=== PATIENT | male | born 1965 | race Caucasian/White ===

== ENCOUNTER 2018-08-05 16:29 | Emergency (ER) | payer OTHER ==
--- NOTE | 2018-08-05 18:05 | CRLCR ---
Dropped something on foot. Three views of the right foot. FINDINGS: Degenerative change of the 1st MTP joint. Normal alignment. Soft tissue swelling over the medial foot. No acute fractures seen. Calcaneal spurs. IMPRESSION: 1. No acute fracture seen. Dictated by Keyla Wright MD @ Aug 05 2018 6:01PM Signed by Dr. Keyla Wright @ Aug 05 2018 6:03PM
--- NOTE | 2018-08-05 18:09 | EDM.PDOC ---
ED HPI GENERAL MEDICAL PROBLEM - General Chief Complaint: Lower Extremity Injury/Pain Stated Complaint: HURT RI FOOT Time Seen by Provider: 08/05/18 17:08 Source of Information: Reports: Patient History Limitations: Reports: No Limitations - History of Present Illness INITIAL COMMENTS - FREE TEXT/NARRATIVE: This gentleman dropped about an 80 pound weight on his right foot about a week ago. Apparently it landed just above the steel toe. He says the foot is swollen and hurts a lot and he can barely bear weight on it. He drives a forklift. He doesn't think he'll be able to work for a couple of days Right Foot Pain Score (Numeric/FACES): 3 - Related Data Allergies Allergy/AdvReac Type Severity Reaction Status Date / Time No Known Allergies Allergy Verified 08/05/18 17:08 Home Meds: Home Meds NK [No Known Home Meds] 08/05/18 [History] Past Medical History Cardiovascular History: Reports: Hypertension Musculoskeletal History: Reports: Other (See Below) Other Musculoskeletal History: shoulder, knee, and back issues from - Infectious Disease History Infectious Disease History: Reports: Chicken Pox Social & Family History - Tobacco Use Smoking Status *Q: Current Every Day Smoker Years of Tobacco use: 30 Packs/Tins Daily: 1 - Caffeine Use Caffeine Use: Reports: Soda - Recreational Drug Use Recreational Drug Use: No Review of Systems - Review of Systems Review Of Systems: ROS reveals no pertinent complaints other than HPI. ED EXAM, GENERAL - Physical Exam Exam: See Below Exam Limited By: No Limitations General Appearance: Alert, WD/WN, Mild Distress Extremities: Other (Patient has trouble pulling off his boot there is a little bit of swelling to the distal part of the foot mostly on the dorsum. When I forcibly flex the toes that seems to cause him a lot of pain in the upper part of the foot extending into the calf. Does not look like a compartment syndrome however. Does not look like any kind of infection.) Skin Exam: Warm, Dry Course - Vital Signs Last Recorded V/S: Last Vital Signs Temp 35.3 C 08/05/18 17:09 Pulse 88 08/05/18 17:09 Resp 16 08/05/18 17:09 BP 206/79 H 08/05/18 17:09 Pulse Ox 95 08/05/18 17:09 - Orders/Labs/Meds Orders: Active Orders 24 hr Category Date Time Status Foot Comp Min 3V Rt [CR] Stat Exams 08/05/18 17:14 Taken - Radiology Interpretation Free Text/Narrative:: No evidence of fracture or dislocation Departure - Departure Time of Disposition: 18:07 Disposition: Home, Self-Care 01 Condition: Fair Clinical Impression: Contusion of right foot - Discharge Information Referrals: PCP,None [Primary Care Provider] - Additional Instructions: Try to stay off your foot for the next couple of days elevated apply ice and so forth if you're unable to return to work by Wednesdays and you should follow-up with another doctor. Your blood pressure is elevated and you should have this rechecked and probably treated by a Dr. or other health care provider. Untreated high blood pressure is dangerous. - My Orders Last 24 Hours: My Active Orders 08/05/18 17:14 Foot Comp Min 3V Rt [CR] Stat - Assessment/Plan Last 24 Hours: My Active Orders 08/05/18 17:14 Foot Comp Min 3V Rt [CR] Stat
== END 2018-08-05 18:10 | disposition home or self-care (01) ==
LOC: JP.ED 16:29
DX: S90.31XA Contusion of right foot, initial encounter (principal); I10 Essential (primary) hypertension; F17.210 Nicotine dependence, cigarettes, uncomplicated; W20.8XXA Other cause of strike by thrown, projected or falling object, initial encounter
CPT/HCPCS: 73630-RT; 99283-25